=== PATIENT | female | born 1995 | race Hispanic/Latino ===

== ENCOUNTER 2016-07-19 18:30 | Inpatient (IN) | payer OTHER ==
[~2016-07-19] VITALS: Ht 175.3 cm; Wt 68.0 kg
[2016-07-19] MEDS ORDERED: folic PO (18:51)
[2016-07-19] MEDS ORDERED: Lactated Ringer's 1,000 ML IV PRN (19:46)
[2016-07-19] MEDS ORDERED: Oxytocin 30 Units/500 mL LR 30 UNITS in IV Premix 1 EACH IV PRN (19:50)
[2016-07-19] MEDS ORDERED: Methylergonovine 0.2 mg/mL Inj IM PRN (19:50)
[2016-07-19] MEDS ORDERED: Hemorrhage Kit, Post Partum XX ONE (19:50)
[2016-07-19] MEDS ORDERED: fentaNYL-PF 50 mCg/mL 2 mL Inj IVPUSH PRN (19:50)
[2016-07-19] MEDS ORDERED: Sodium Chloride LOK Flush 10 mL Syringe IVFLUSH PRN (19:50)
[2016-07-19] MEDS ORDERED: Carboprost 250 mCg/mL Inj IM PRN (19:50)
[2016-07-19] MEDS ORDERED: Ondansetron 2 mg/mL 2 mL Inj IVPUSH PRN (19:50)
[2016-07-19] MEDS ORDERED: Oxytocin 10 Unit/mL Inj IM PRN (19:50)
[2016-07-19 20:30] LABS: Mean Corpuscular Hemoglobin 28.3 pg (27.0-35.0)
[2016-07-19 20:32] LABS: Mean Corpuscular Volume 83.6 fL (81-100)
[2016-07-19] MEDS ORDERED: Atropine 1 mg/10 mL (Code) Syringe IVPUSH PRN (20:45)
[2016-07-19] MEDS ORDERED: Lactated Ringer's 500 ML IV ONE (20:45)
[2016-07-19] MEDS ORDERED: fentaNYL 2 mCg/mL-Bupiv 0.125% 100 ML EPIDURAL SCH (20:45)
[2016-07-19] MEDS ORDERED: EPHEDrine Sulfate 50 mg/mL Inj IVPUSH PRN (20:45)
--- NOTE | 2016-07-19 20:45 | PCM.HPANE ---
Patient Data Surgeon Admitting Provider:Leigh Ann Damian MD Attending Provider:Leigh Ann Damian MD Primary Care Physician:Leigh Ann Damian MD Other Provider:[facility] Anesthesia Reason for Visit Term Labor Check TERM LABOR CHECK Ht/WT & BMI Body Mass Index Allergies Coded Allergies: No Known Allergies (Unverified , 07/19/16) Past Anesthesia History Anesthesia History: Denies:: Abnormal Airway, Difficult Intubation Diabetes History Hx Diabetes?: No MRSA MRSA: No Medications Hypertension Medication: No Home Meds Incl Beta Radha: No Reported Medications [folic] No Conflict Check Po Daily 07/19/16 History History of ENT Problems?: No Hx of Heart Problems?: No Hx of Respiratory Problem?: No Hx Neurologic Problems?: No Hx of GI Problems?: No Hx of Problems?: No HX of Peritoneal Dialysis: No Female Hx: Positive for:: Currently Hx Musculoskeletal Problems?: No Hx Surgeries?: No Stop/Bang Treated for Sleep Apnea?: No Do You Have a CPAP Machine?: No KRISTEL Risk Assessment: Low Risk, <3 Yes Risk Assessment Category Category 1A: Patient has history of documented sleep apnea, and HAS NOT received any narcotic, sedative or anesthesia administration during this stay. Category 1B: Patient has history of documented sleep apnea, and HAS received any narcotic , sedative or anesthesia administration during this stay Category 2: Patient has SUSPECTED Obstructive Sleep Apnea, and HAS received any narcotic , sedative or anesthesia administration during this stay. Category 3: Patient has SUSPECTED Obstructive Sleep Apnea and HAS NOT received narcotic, sedative or anesthesia administration during this stay. Category 4: Outpatient in Procedural Areas with known sleep apnea or who screen positive for High Risk via the STOP/BANG questionnaire. Exam Exam General Appearance: Alert, Oriented X3, Cooperative, No Acute Distress HEENT/AIRWAY: MP 2 Lungs: Clear to Auscultation, Normal Air Movement Heart: Exam Unremarkable, Regular Rate/Rhythm, No Murmurs/Rubs/Gallops Meds/Labs/Diagnostics Labs Test 07/19/16 20:15 White Blood Count 8.6th/mm3 (3.8-10.1) Red Blood Count 4.38mil/mm3 (3.90-5.20) Hemoglobin 12.4g/dL (12.0-15.6) Hematocrit 36.6% (35.0-46.0) Mean Corpuscular Volume 83.6fL (81-100) Mean Corpuscular Hemoglobin 28.3pg (27.0-35.0) Mean Corpuscular Hemoglobin Concent 33.9% (32.0-37.0) Red Cell Distribution Width 15.8% (12.3-15.4) Platelet Count 153bil/L (150-400) Plan Impression Patient chart reviewed, patient interviewed and anesthestic plan with risks, benefits, and alternatives discussed, and informed consent obtained. ASA Physical Status: ASA1 Normal Healthy Anesthetic Plan: Epidural Bene/Risks/Altern/Consents: Yes HP Complete Prior to Induction: Yes Tone Ashford MD Jul 19, 2016 20:45
--- NOTE | 2016-07-19 20:49 | PCM.HPOB ---
Subjective Date of Service: Jul 19, 2016 Referring Provider: Admitting Physician: Leigh Ann Damian MD Primary Care Physician: Leigh Ann Damian MD Attending Physician: Leigh Ann Damian MD Chief Complaint increased contractions at 40 wk 3 d gestational age. History of Present History of Present Illness 20 yr old, at 40 wk 3 d gestational age by SOWMYA=07/16/16 based on LMP, consistent with an 8-wk u/s, presented to [facility] this evening due to increased contractions; initial exam revealed that she was 6 cm dilated. Her has been uncomplicated mostly, despite mild morning sickness and mild depression initially; she does not smoke, no alcohol or drugs, with good social support. Her labs: O+, rubella immune, antibody screen negative, HBsAg negative, RPR nonreactive, HIV negative, GC/CT negative; PAP, quad screen were normal; GBS negative; she was not able to take the sugar water for glucose tolerance testing; her most recent A1c was normal. OB History: (1), Para (0) Obstetrical Complications: None Past Medical History Obstetrical History: currently Medical History: no major medical hx Surgical History: no major surgical hx Hx Tobacco Use: No Hx Alcohol Use: No Hx Substance Use: No Past Family History Living Arrangement: with Family Genetic Screening/Counseling Genetic Screening/Counseling: Negative Review of Systems ROS labor contractions present; no other complaints. Allergy Coded Allergies: No Known Allergies (Unverified , 07/19/16) Exam Vital Signs normal vitals Exam category 1 Constitutional: Well-developed, Well-nourished, Normal habitus HEENT: Atraumatic, PERRLA Lungs: Clear to Auscultation Heart: Exam Unremarkable, Regular Rate/Rhythm, Normal S1, Normal S2, No Murmurs /Rubs/Gallops Abdomen: Gravid Extremities: Pulses Palpable x4, Warm, No Edema Neurological/Psychiatric: Alert, Oriented X3, Cooperative, No Acute Distress Neuro: Grossly Neurologically Intact OB Intrapartum Assessment/Plan Assessment 20 yrs old at 40 wk 3 d gestational age in labor; GBS negative; anticipate normal vaginal delivery. Leigh Ann Damian MD Jul 19, 2016 20:49
[2016-07-19] MEDS: Lactated Ringer's 1,000 ML IV SCH ×2 (21:43→22:21)
[2016-07-20] MEDS ORDERED: Oxytocin 30 Units/500 mL LR 30 UNITS in IV Premix 1 EACH IV PRN (03:25)
[2016-07-20] MEDS ORDERED: Lactated Ringer's 1,000 ML IV SCH (06:47)
[2016-07-20] MEDS ORDERED: LANOlin HPA 7 Gm Ointment TOPICAL PRN (06:50)
[2016-07-20] MEDS ORDERED: Hemorrhage Kit, Post Partum XX ONE (06:50)
[2016-07-20] MEDS ORDERED: Witch Hazel-Glycerin Pads TOPICAL PRN (06:50)
--- NOTE | 2016-07-20 19:45 | PCM.OBVAG ---
Vaginal Delivery Date of Service Jul 20, 2016 Pre Operative Diagnosis Pre Operative Diagnosis active labor at term Post Operative Diagnosis Post Operative Diagnosis Normal vaginal delivery at term; Procedure Procedure: AROM around 11:37 PM last night when she was 8 cm dilated, seeing clear fluids; she was completed around 4:30 AM today, and had a normal vaginal delivery around 5:36 AM today; Head position: BRIAN; the cried vigorous right after ; he was placed onto mother's chest immediately; apg was 9/9, with wt ~7 lb. The placenta was then delivered intact, with a 3-v cord. A 2nd degree midline was repaired using 3-0 vicryl sutures. Lidocaine 1% was applied locally for anesthesia; epidural anesthesia was placed earlier during the labor. Estimated blood loss: ~350 ml. [place] and sharps were disposed appropriately; sponges counts were correct. Both the mother and the remained in good conditions after the delivery. Obstetical Procedure: Normal Spontaneous Vaginal Delivery Personal Service Representative/[employer] Se[employer] Provider and [employer] Seal: Dr. Damian and the nursing team. Indication for Procedure Induction: Active labor, AROM, Progressed normally through labor Findings Obstetrical Findings: (Male), Cord (3 Vessel), Weight ( 7 lbs 0 oz), Presentation (BRIAN), 1 minute (9), 5 minutes (9), Placenta ( Intact/Normal), Perineal Laceration (2nd degree) Analgesia/Medications Obstetrical Anesthesia: Epidural IV Intake/Output Catheters: Urethral 2 Way Jiang Blood Loss & Administration Estimated Blood Loss: 350 Blood Admin during procedure: No Post Procedure Plan Post delivery Condition: Mom stable, Baby stable to nursery Attending Statement Dr. Earl was aware of the case. Leigh Ann Damian MD Jul 20, 2016 19:45
[2016-07-21 07:54] LABS: Mean Corpuscular Hemoglobin 28.5 pg (27.0-35.0); Mean Corpuscular Volume 86.9 fL (81-100)
--- NOTE | 2016-07-21 10:31 | PCM.DIOB ---
Obstetrical Disch Instruction Date of Service: Jul 21, 2016 Dates of Hospitalization Date of Hospital Admission Jul 19, 2016 at 19:44 Providers Admitting Physician: Leigh Ann Damian MD Primary Care Physician: Leigh Ann Damian MD Attending Physician: Leigh Ann Damian MD Discharge Diagnosis Problems: (1) Normal delivery Status: Acute ICD Code: O80 (2) Anemia, Status: Acute ICD Code: O90.81 Diet Discharge Diet: No restrictions Activity Discharge Activity-General: Pelvic Rest for 6 weeks, Balance rest and activity , Activity as pain allows, Activity as energy allows Dressing and Incisional Care Hygiene: May shower, Perineal care, Sitz bath, Dermoplast spray, Witch [place] pads, Ice Additional Instructions Discharge Instructions Ibuprofen, ferrous sulfate, vitamins, DSS all faxed to [facility] pharmacy electronically through outpatient electronic medical records Follow Up Plan Follow-up Provider (F9): Leigh Ann Damian MD Follow-up appointment: Weeks Call your provider for: Fever or Chills, Shortness of breath, Heavy vaginal bleeding, Excessive constipation, Vaginal discomfort, Red painful breasts ( Swollen, painful leg) Liu Carty MD Jul 21, 2016 10:30
--- NOTE | 2016-07-21 11:25 | DIS ---
[address] [address] DISCHARGE SUMMARY PATIENT: ERICH TATUM : 1995 MR#: [id number] ADMIT: 07/19/2016 JOB ID: [id number] DIS: ADMIT DIAGNOSES: 1 para 1 in active labor. DISCHARGE DIAGNOSES: 1. 1 now para 1, status post normal spontaneous vaginal delivery. 2. Anemia, . HOSPITAL COURSE: For details of admission and delivery please see notes by Dr. Leigh Ann Damian. Briefly, the patient came into the hospital in active labor, with 6 cm dilation. She progressed spontaneously with help of an epidural to a vaginal delivery approximately 8 hours after admission. Deliver was without complications. she did well ambulating, with good p.o. intake as well as normal bowel and bladder function. She did have some difficulty and was still trying to optimize latch on the day of discharge. She had no fevers. Pain was well controlled. Lochia within normal limits. OBJECTIVE: Vital signs are stable. She is afebrile. Normal blood pressure. No acute distress. Pleasant, cooperative. Cardiovascular: Regular rate and rhythm. S1, S2. No murmurs, gallops, or rubs. Lungs: Clear to auscultation bilaterally. No wheezes. Her abdomen is soft, nontender. Uterus is at two fingerbreadths below umbilicus, midline. Somewhat soft, though firms with massage. Lower extremities without edema and nontender. LABORATORY: labs show a white count 11.5, hematocrit 29.9, platelets 147. DISCHARGE INSTRUCTIONS: The patient is discharged home. She will follow up within six weeks with Dr. Damian at the [facility]. vitamins, iron, ibuprofen, and docusate are all faxed to her outpatient pharmacy electronically through the outpatient chart. Reviewed with the patient signs and symptoms of usual peripartum complications and how to manage those and access care if needed.
[2016-07-21 11:35] VITALS: BP 120/56; PULSE 58; RESP 16
== END 2016-07-21 13:35 | disposition home or self-care (01) | DRG 775 ==
LOC: FBCO 18:30 → FBC 19:44
PROVIDERS: ADMIT Family Medicine; ATTEND Family Medicine
PROC: 10907ZC Drainage of Amniotic Fluid, Therapeutic from Products of Conception, Via Natural or Artificial Opening (ICD-10-PCS; 2016-07-19)
PROC: 10E0XZZ Delivery of Products of Conception, External Approach (ICD-10-PCS; principal; 2016-07-20)
DX: O70.1 Second degree perineal laceration during delivery (principal); D64.9 Anemia, unspecified; Z37.0 Single live birth; Z3A.40 40 weeks gestation of pregnancy; O90.81 Anemia of the puerperium